=== PATIENT | female | born 1995 | race African-American/Black ===

== ENCOUNTER 2021-08-18 03:49 | Inpatient (IN) ==
[2021-08-18] MEDS ORDERED: KETOROLAC 30 MG/1 ML VIAL IV STA (04:22)
[2021-08-18 05:40] LABS: Eosinophils % 0.2 % (0.00-10.9)
[2021-08-18 05:46] LABS: Basophils % 0.2 % (0.0-0.8); Hematocrit 35.2 VOL% (35.7-47.0); Hemoglobin 11.3 GM/DL (12.0-16.0); Immature Granulocytes % 0.6 %; Immature Granulocytes Absolute 0.12 #; Lymphocytes # 1.4 10*3/uL (1.4-4.0); Lymphocytes % 7.2 % (21.3-54.2); Mean Corpuscular HGB Conc 32.1 GM/DL (32-36); Mean Corpuscular Volume 88.7 FL (87-102); Mean Platelet Volume 11.3 FL (9.6-12.0); Monocytes % 9.3 % (1.7-12.7); Neutrophils % 82.5 % (38.7-73.9); Platelet Count 323 T/CUMM (130-400); Red Blood Count 3.97 MC/CUMM (3.8-5.5); Red Cell Distribution Width 13.3 % (9.3-17.3); White Blood Count 19.4 T/CUMM (4-12)
[2021-08-18 05:49] LABS: PT Patient Result 11.3 SECS (10.5-12.0)
[2021-08-18 05:55] LABS: Bilirubin,Urine Negative (Negative); Blood, Urine Negative (Negative); Glucose,Urine (UA) Negative (Negative); Ketones,Urine Negative (Negative); Mucus,Urine Occasional /LPF (Occasional); Nitrite,Urine Negative (Negative); Protein,Urine Negative; RBC,Urine 8 /HPF (0-4); Squamous Epithelial Cell,Urine Occasional /HPF (0-10); Urine Appearance CLEAR (Clear); Urine Color Yellow (Yellow); Urine Specific Gravity 1.023 (1.001-1.035); Urine Urobilinogen < 2.0 EU/DL (0.2-1.0)
[2021-08-18 06:16] LABS: Albumin 3.4 G/DL (3.4-5.0); Calcium 8.8 MG/DL (8.5-10.1); Osmolality,Calculated 272.8 MOS/KG (273-304); Potassium 3.7 MMOL/L (3.5-5.1); Total Protein 7.9 G/DL (6.4-8.2)
[2021-08-18] MEDS ORDERED: ceFAZolin 2,000 MG/50 ML DUPLEX IV ONE (06:20)
[2021-08-18] MEDS ORDERED: LACTATED RINGERS 1,000 ML IV ONE ×3 (06:21→07:49)
[2021-08-18] MEDS ORDERED: MIDAZOLAM 2 MG/2 ML VIAL ONE (06:32)
[2021-08-18] MEDS ORDERED: propofoL 200 MG/20 ML VIAL IV ONE (06:32)
[2021-08-18] MEDS ORDERED: fentaNYL 250 MCG/5 ML VIAL ONE ×2 (06:32→07:45)
[2021-08-18] MEDS ORDERED: LIDOCAINE 2% 5 ML VIAL ONE (06:32)
[2021-08-18] MEDS ORDERED: SEVOFLURANE 1 UNIT/15 MINUTE INH ONE (06:32)
[2021-08-18] MEDS ORDERED: ROCURONIUM 50 MG/5 ML VIAL IV ONE (06:33)
[2021-08-18] MEDS ORDERED: ONDANSETRON 4 MG/2 ML VIAL ONE (06:33)
[2021-08-18] MEDS ORDERED: ACETAMINOPHEN INJ 0 MG/0 ML VIAL IV ONE (06:33)
[2021-08-18] MEDS ORDERED: LIDOCAINE 1% 5 ML VIAL ONE (06:38)
[2021-08-18] MEDS ORDERED: DEXAMETHASONE 4 MG/1 ML VIAL ONE (06:38)
[2021-08-18] MEDS ORDERED: ROPIVACAINE 0.5% 30 ML VIAL ONE (06:38)
[2021-08-18] MEDS ORDERED: HYDROmorphone 2 MG/1 ML VIAL IV PRN (07:04)
[2021-08-18] MEDS ORDERED: ONDANSETRON 4 MG/2 ML VIAL IV PRN ×2 (07:04→10:01)
[2021-08-18] MEDS ORDERED: PROMETHAZINE INJ 25 MG in SODIUM CHLORIDE 0.9% 50 ML IV PRN (07:04)
[2021-08-18] MEDS ORDERED: MEPERIDINE 25 MG/1 ML VIAL IV PRN (07:04)
[2021-08-18] MEDS ORDERED: diphenhydrAMINE 50 MG/1 ML VIAL IV PRN (07:04)
[2021-08-18] MEDS ORDERED: PHENYLEPHRINE 1 MG/10 ML SYRINGE IV ONE (07:24)
[2021-08-18] MEDS ORDERED: BACITRACIN OINT 0.9 GM PACK TOP ONE (07:45)
[2021-08-18] MEDS ORDERED: GENTAMICIN 80 MG/2 ML VIAL ONE (07:45)
[2021-08-18] MEDS ORDERED: SUGAMMADEX 200 MG/2 ML VIAL IV ONE (08:22)
[2021-08-18] MEDS ORDERED: fentaNYL 100 MCG/2 ML VIAL ONE (08:41)
[2021-08-18] MEDS ORDERED: MAGNESIUM HYDROXIDE SUSP 30 ML UDCUP PO PRN (08:51)
[2021-08-18] MEDS: LACTATED RINGERS 1,000 ML IV SCH ×2 (09:49→17:06)
[2021-08-18] MEDS: DOCUSATE SODIUM 100 MG CAPSULE PO SCH ×2 (11:15→20:55)
[2021-08-18] MEDS: MULTIVITAMIN (PRENATAL) TABLET PO SCH (11:55)
[2021-08-18] MEDS: ceFAZolin 2,000 MG/50 ML DUPLEX IV SCH ×2 (14:52→20:59)
[2021-08-18] MEDS: HYDROmorphone 2 MG/1 ML VIAL IV PRN (16:08)
[2021-08-18] MEDS: DEXTROSE 5% NACL 0.45% 1,000 ML IV SCH ×2 (17:09→21:15)
[2021-08-19] MEDS: HYDROmorphone 2 MG/1 ML VIAL IV PRN (01:54)
[2021-08-19] MEDS: FONDAPARINUX 2.5 MG/0.5 ML SYRINGE SUBCUT SCH (03:33)
[2021-08-19] MEDS: DEXTROSE 5% NACL 0.45% 1,000 ML IV SCH ×2 (03:39→07:20)
[2021-08-19] MEDS: LACTATED RINGERS 1,000 ML IV SCH (04:31)
[2021-08-19 06:34] LABS: Basophils % 0.1 % (0.0-0.8); Eosinophils % 0.4 % (0.00-10.9); Hematocrit 28.6 VOL% (35.7-47.0); Immature Granulocytes % 0.4 %; Immature Granulocytes Absolute 0.03 #; Lymphocytes # 1.3 10*3/uL (1.4-4.0); Lymphocytes % 15.6 % (21.3-54.2); Mean Corpuscular HGB Conc 31.5 GM/DL (32-36); Mean Corpuscular Volume 90.2 FL (87-102); Mean Platelet Volume 11.3 FL (9.6-12.0); Monocytes % 15.1 % (1.7-12.7); Neutrophils % 68.4 % (38.7-73.9); Platelet Count 265 T/CUMM (130-400); Red Blood Count 3.17 MC/CUMM (3.8-5.5); Red Cell Distribution Width 13.7 % (9.3-17.3); White Blood Count 8.3 T/CUMM (4-12)
[2021-08-19 06:50] LABS: Calcium 7.8 MG/DL (8.5-10.1); Osmolality,Calculated 277.4 MOS/KG (273-304)
[2021-08-19] MEDS: DOCUSATE SODIUM 100 MG CAPSULE PO SCH ×2 (09:23→20:31)
[2021-08-19] MEDS: CALCIUM (CARBONATE)/VITAMIN D 600 MG-400 UNIT TABLET PO SCH (09:23)
[2021-08-19] MEDS: MULTIVITAMIN (PRENATAL) TABLET PO SCH (09:23)
[2021-08-19] MEDS: MORPHINE 2 MG/1 ML SYRINGE IV PRN ×2 (12:29→18:16)
[2021-08-20] MEDS: MORPHINE 2 MG/1 ML SYRINGE IV PRN ×3 (01:54→18:36)
[2021-08-20] MEDS: FONDAPARINUX 2.5 MG/0.5 ML SYRINGE SUBCUT SCH (04:23)
[2021-08-20] MEDS: HYDROmorphone 2 MG/1 ML VIAL IV PRN (04:29)
[2021-08-20 04:58] LABS: Basophils % 0.4 % (0.0-0.8); Eosinophils # 0.3 10*3/uL (0.0-0.87); Hematocrit 28.7 VOL% (35.7-47.0); Hemoglobin 9.1 GM/DL (12.0-16.0); Immature Granulocytes % 0.5 %; Immature Granulocytes Absolute 0.04 #; Lymphocytes # 2.2 10*3/uL (1.4-4.0); Lymphocytes % 25.3 % (21.3-54.2); Mean Corpuscular HGB Conc 31.7 GM/DL (32-36); Mean Corpuscular Volume 90.3 FL (87-102); Mean Platelet Volume 11.4 FL (9.6-12.0); Monocytes % 11.4 % (1.7-12.7); Neutrophils % 59.4 % (38.7-73.9); Platelet Count 274 T/CUMM (130-400); Red Blood Count 3.18 MC/CUMM (3.8-5.5); Red Cell Distribution Width 13.9 % (9.3-17.3); White Blood Count 8.5 T/CUMM (4-12)
[2021-08-20] MEDS: MULTIVITAMIN (PRENATAL) TABLET PO SCH (09:18)
[2021-08-20] MEDS: CALCIUM (CARBONATE)/VITAMIN D 600 MG-400 UNIT TABLET PO SCH (09:18)
[2021-08-20] MEDS: DOCUSATE SODIUM 100 MG CAPSULE PO SCH ×2 (09:18→20:05)
[2021-08-21] MEDS: MORPHINE 2 MG/1 ML SYRINGE IV PRN (01:02)
[2021-08-21] MEDS: FONDAPARINUX 2.5 MG/0.5 ML SYRINGE SUBCUT SCH (03:07)
[2021-08-21 07:39] VITALS: BP 115/66
[2021-08-21] MEDS: DOCUSATE SODIUM 100 MG CAPSULE PO SCH (08:40)
[2021-08-21] MEDS: CALCIUM (CARBONATE)/VITAMIN D 600 MG-400 UNIT TABLET PO SCH (08:41)
[2021-08-21] MEDS: MULTIVITAMIN (PRENATAL) TABLET PO SCH (08:42)
== END 2021-08-21 12:17 | disposition home or self-care (01) | DRG 308 ==
LOC: N.ED 03:49 → N.EDINP 05:03 → N.3E 06:05
PROVIDERS: ADMIT Orthopaedic Surgery; ATTEND Orthopaedic Surgery

== ENCOUNTER 2022-06-25 05:03 | Inpatient (IN) ==
[2022-06-25] MEDS ORDERED: CARBOPROST TROMETHAMINE 250 MCG/ML AMP IM PRN (05:14)
[2022-06-25] MEDS ORDERED: OXYTOCIN/LR 20 UNIT/1,000 ML BAG IV ONE ×2 (05:14→17:21)
[2022-06-25] MEDS ORDERED: METHYLERGONOVINE 0.2 MG/1 ML AMP IM PRN (05:14)
[2022-06-25] MEDS ORDERED: BUTORPHANOL 2 MG/ML VIAL IV PRN (05:14)
[2022-06-25] MEDS ORDERED: TRANEXAMIC ACID 1,000 MG in SODIUM CHLORIDE 0.9% 100 ML IV PRN (05:14)
[2022-06-25] MEDS ORDERED: miSOPROStoL 200 MCG TABLET RECTAL PRN (05:14)
[2022-06-25] MEDS ORDERED: AMPICILLIN INJ 2,000 MG in SODIUM CHLORIDE 0.9% 100 ML IV ONE (05:15)
[2022-06-25] MEDS ORDERED: OXYTOCIN/LR 20 UNIT/1,000 ML BAG IV SCH (05:30)
[2022-06-25 05:51] LABS: Basophils % 0.2 % (0.0-0.8); Eosinophils # 0.2 10*3/uL (0.0-0.87); Eosinophils % 1.6 % (0.00-10.9); Hemoglobin 9.6 GM/DL (12.0-16.0); Immature Granulocytes % 0.9 %; Immature Granulocytes Absolute 0.09 #; Lymphocytes # 2.1 10*3/uL (1.4-4.0); Mean Corpuscular Volume 85.9 FL (87-102); Mean Platelet Volume 10.8 FL (9.6-12.0); Monocytes # 0.8 10*3/uL (0.11-0.8); Monocytes % 8.4 % (1.7-12.7); Neutrophils % 67.9 % (38.7-73.9); Platelet Count 319 T/CUMM (130-400); Red Blood Count 3.61 MC/CUMM (3.8-5.5); Red Cell Distribution Width 14.7 % (9.3-17.3); White Blood Count 9.9 T/CUMM (4-12)
[2022-06-25] MEDS: LACTATED RINGERS 1,000 ML IV SCH ×2 (05:54→12:37)
[2022-06-25] MEDS: ONDANSETRON 4 MG/2 ML VIAL IV PRN ×2 (06:11→11:51)
[2022-06-25] MEDS: MEPERIDINE 50 MG/1 ML VIAL IV PRN ×2 (06:16→08:19)
[2022-06-25] MEDS: AMPICILLIN INJ 1,000 MG in SODIUM CHLORIDE 0.9% 100 ML IV SCH ×2 (09:45→14:09)
[2022-06-25] MEDS ORDERED: LACTATED RINGERS 250 ML IV PRN (12:23)
[2022-06-25] MEDS ORDERED: NALOXONE 0.4 MG/ML VIAL IV PRN (12:23)
[2022-06-25] MEDS ORDERED: diphenhydrAMINE 50 MG/1 ML VIAL IV PRN ×2 (12:23)
[2022-06-25] MEDS ORDERED: ePHEDrine 50 MG/ML VIAL IV PRN (12:23)
[2022-06-25] MEDS ORDERED: PROMETHAZINE 25 MG/1 ML VIAL IM ONE (12:23)
[2022-06-25] MEDS ORDERED: ONDANSETRON 4 MG/2 ML VIAL IV ONE (12:23)
[2022-06-25] MEDS ORDERED: hydrOXYzine HCL 25 MG/1 ML VIAL IM PRN (12:23)
[2022-06-25] MEDS ORDERED: CITRIC ACID/SODIUM CITRATE 30 ML UDCUP PO ONE (12:25)
[2022-06-25] MEDS ORDERED: FAMOTIDINE 20 MG/2 ML VIAL IV ONE (12:25)
[2022-06-25] MEDS ORDERED: fentaNYL 2 MCG/ROPIV 0.2% EPID 100 ML EPIDURAL SCH (12:30)
[2022-06-25 14:20] LABS: Bilirubin,Urine Negative (Negative); Blood, Urine Negative (Negative); Glucose,Urine (UA) Negative (Negative); Ketones,Urine Negative (Negative); Mucus,Urine Occasional /LPF (Occasional); Nitrite,Urine Negative (Negative); Protein,Urine Negative (Negative); RBC,Urine 2 /HPF (0-4); Squamous Epithelial Cell,Urine Occasional /HPF (0-10); Urine Appearance Clear (Clear); Urine Color Yellow (Yellow); Urine Specific Gravity 1.025 (1.001-1.035); Urine Urobilinogen 0.2 eU/dL (<2.0); Urine pH 6.5 (4.5-8.0)
[2022-06-25] MEDS: ALUMINUM/MAGNES/SIMETH MAX STR 30 ML UDCUP PO PRN (15:03)
[2022-06-25 15:47] LABS: Cord Arterial Blood HCO3 20.5 MMOL/L
[2022-06-25 15:49] LABS: Cord Venous Blood HCO3 24.2 MMOL/L; Cord Venous Blood PCO2 48.6 MMHG; Cord Venous Blood PO2 34.6
[2022-06-25] MEDS ORDERED: ONDANSETRON 4 MG/2 ML VIAL IV PRN (17:21)
[2022-06-25] MEDS ORDERED: WITCH HAZEL PADS 100/JAR TOP PRN (17:21)
[2022-06-25] MEDS ORDERED: BENZOCAINE 20%/MENTHOL 0.5% SPRAY 56 GM CAN TOP PRN (17:21)
[2022-06-25] MEDS ORDERED: HYDROCORTISONE 2.5% RECTAL CREAM 30 GM TUBE TOP PRN (17:21)
[2022-06-25] MEDS ORDERED: RHO(D) IMMUNE GLOBULIN 300 MCG SYRINGE IM ONE (17:21)
[2022-06-25] MEDS ORDERED: DIPH/TET/ACEL PERT BOOSTER VACCINE 0.5 ML VIAL IM ONE (17:21)
[2022-06-25] MEDS ORDERED: MEASLES/MUMPS/RUBELLA VACCINE 0.5 ML VIAL SUBCUT ONE (17:21)
[2022-06-25] MEDS ORDERED: BISACODYL 10 MG SUPP RECTAL PRN (17:21)
[2022-06-25] MEDS ORDERED: LANOLIN 50% CREAM 0.3 OZ TUBE TOP PRN (17:21)
[2022-06-25] MEDS: IBUPROFEN 800 MG TABLET PO PRN (22:17)
[2022-06-25] MEDS: DOCUSATE SODIUM 100 MG CAPSULE PO SCH (22:20)
[2022-06-25] MEDS: ACETAMINOPHEN 325 MG TABLET PO PRN (23:20)
[2022-06-26] MEDS ORDERED: diphenhydrAMINE CAP 25 MG CAPSULE PO PRN (00:38)
[2022-06-26 06:15] LABS: Basophils % 0.2 % (0.0-0.8); Eosinophils # 0.2 10*3/uL (0.0-0.87); Eosinophils % 1.1 % (0.00-10.9); Hematocrit 30.7 VOL% (35.7-47.0); Hemoglobin 9.5 GM/DL (12.0-16.0); Immature Granulocytes % 0.8 %; Lymphocytes # 2.4 10*3/uL (1.4-4.0); Lymphocytes % 17.7 % (21.3-54.2); Mean Corpuscular HGB Conc 30.9 GM/DL (32-36); Mean Platelet Volume 10.8 FL (9.6-12.0); Monocytes # 1.2 10*3/uL (0.11-0.8); Monocytes % 8.9 % (1.7-12.7); Neutrophils % 71.3 % (38.7-73.9); Platelet Count 316 T/CUMM (130-400); Red Blood Count 3.57 MC/CUMM (3.8-5.5); Red Cell Distribution Width 14.8 % (9.3-17.3); White Blood Count 13.3 T/CUMM (4-12)
[2022-06-26] MEDS: DOCUSATE SODIUM 100 MG CAPSULE PO SCH ×2 (09:31→20:23)
[2022-06-26] MEDS: ACETAMINOPHEN 325 MG TABLET PO PRN (14:05)
[2022-06-26] MEDS: IBUPROFEN 800 MG TABLET PO PRN (18:12)
[2022-06-27] MEDS: IBUPROFEN 800 MG TABLET PO PRN (04:11)
[2022-06-27 08:44] VITALS: BP 128/71
[2022-06-27] MEDS: ALUMINUM/MAGNES/SIMETH MAX STR 30 ML UDCUP PO PRN (09:08)
[2022-06-27] MEDS: DOCUSATE SODIUM 100 MG CAPSULE PO SCH (09:08)
== END 2022-06-27 11:50 | disposition home or self-care (01) | DRG 560 ==
LOC: N.LD 05:03 → N.OB 21:03
PROVIDERS: ADMIT Obstetrics & Gynecology; ATTEND Obstetrics & Gynecology